=== PATIENT | female | born 1965 | race American Indian/Alaskan Native ===

== ENCOUNTER 2024-11-06 08:55 | Emergency (ER) | payer BC ==
[2024-11-06 10:02] LABS: BASOPHILS ABSOLUTE AUTO 0.05 K/uL (0.00-0.20); BASOPHILS PERCENT AUTO 0.7 % (0.0-1.0); EOSINOPHILS ABSOLUTE AUTO 0.18 K/uL (0.00-0.45); EOSINOPHILS PERCENT AUTO 2.4 % (0.0-6.0); IMMATURE GRAN ABSOLUTE AUTO 0.01 K/uL (0.00-0.05); IMMATURE GRAN PERCENT AUTO 0.1 % (0.0-0.4); LYMPHOCYTES ABSOLUTE AUTO 2.96 K/uL (1.00-4.80); LYMPHOCYTES PERCENT AUTO 38.7 % (24.0-44.0); MEAN PLATELET VOLUME 9.3 fL (9.4-12.3); MONOCYTES ABSOLUTE AUTO 0.55 K/uL (0.00-0.80); MONOCYTES PERCENT AUTO 7.2 % (0.0-8.0); NEUTROPHILS ABSOLUTE AUTO 3.89 K/uL (1.80-7.70); NEUTROPHILS PERCENT AUTO 50.9 % (41.0-71.0); NRBC ABSOLUTE 0.00 K/uL (0.00-0.02); NRBC PERCENT 0.0 /100WBC (0.0-0.2); PLATELET COUNT,PLT 281 K/uL (150-400); RED BLOOD CELL COUNT 5.00 M/uL (4.10-5.30); WHITE BLOOD CELL COUNT,WBC 7.64 K/uL (3.9-11.3)
[2024-11-06 10:22] LABS: BASE EXCESS ARTERIAL -0.6 (-2.0-3.0); BICARBONATE,ARTERIAL 18 mEq/L (21-28); PCO2 ARTERIAL 17 mmHG (35-45); PO2 ARTERIAL 134 mmHG (83-108)
[2024-11-06 10:41] LABS: A/G RATIO 1.1 (0.9-1.6); ALANINE AMINOTRANSFERASE,ALT 39 IU/L (14-63); ASPARTATE AMNIOTRANSFERASE,AST 27 IU/L (15-37); BILIRUBIN TOTAL 0.4 mg/dL (0.2-1.0); BLOOD UREA NITROGEN,BUN 11 mg/dL (7.0-18.0); CARBON DIOXIDE,CO2 23.3 mmol/L (21.0-32.0); CHLORIDE,CL 106 mmol/L (98-107); CREATININE 0.9 mg/dL (0.6-1.0); EST CRCL DRUG DOSING (CG) 59.55 mL/min; GLUCOSE RANDOM 104 mg/dL (74-106); POTASSIUM,K 3.9 mmol/L (3.5-5.1); PROTEIN TOTAL,TP 8.1 g/dL (6.4-8.2); SODIUM,NA 143 mmol/L (136-145); TSH ULTRASENSITIVE 0.79 uIU/mL (0.36-3.74)
[2024-11-06 10:46] LABS: ESTIMATED GFR 75 mL/min (>60)
== END 2024-11-06 11:45 | disposition home or self-care (01) ==
LOC: MW.ED 08:55
DX: R42 Dizziness and giddiness (principal); R43.8 Other disturbances of smell and taste
CPT/HCPCS: 36415; 36600; 71045; 71045-26; 80053; 82375; 82803; 83735; 84443; 84484; 85025; 93010; 99283; 99284